=== PATIENT | female | born 1970 | race African-American/Black ===

== ENCOUNTER 2022-06-05 10:26 | Inpatient (IN) | payer OTHER, SELFPAY ==
[2022-06-05] VITALS (14 sets, daily range): BP systolic 144–171; BP diastolic 82–117; PULSE 80–103; RESP 12–32; TEMP 36.4–37.1; O2SAT 94–99; BMI 18.6
--- NOTE | ~2022-06-05 | XR_ITS ---
EXAMINATION: XR chest 1V portable DATE: 06/05/2022 11:04 INDICATION: Shortness of breath. TECHNIQUE: A single frontal view of the chest was obtained. COMPARISON: None. FINDINGS: The patient is rotated to her left. There is a diffuse interstitial normal pattern in the l ungs, consistent with mild pulmonary edema. There is mild scarring at the lung apices. No pleural eff usion or pneumothorax. The heart size is normal. IMPRESSION: 1. Mild pulmonary edema. Reviewed, dictated and finalized at location A. IMPRESSION: 1. Mild pulmonary edema.
--- NOTE | ~2022-06-05 | US_ITS ---
EXAMINATION: US venous doppler LE DATE: 06/06/2022 08:58 INDICATION: Shortness of breath and elevated d-dimer. TECHNIQUE: Grayscale ultrasound images without and with compression and Doppler ultrasound images of the bilateral lower extremity veins were obtained. COMPARISON: None. FINDINGS: The visualized portions of right common femoral vein, profunda (deep) femoral vein, femoral vein, pop liteal vein, posterior tibial veins, peroneal veins, gastrocnemius vein and greater saphenous vein ou tflow are patent. The visualized portions of left common femoral vein, profunda femoral vein, femoral vein, popliteal v ein, posterior tibial veins, peroneal veins, gastrocnemius vein and greater saphenous vein outflow ar e patent. IMPRESSION: 1. No deep venous thrombosis in either lower limb. Reviewed, dictated and finalized at location A.
--- NOTE | ~2022-06-05 | CT_ITS ---
EXAMINATION: CTA chest PE protocol DATE: 06/05/2022 15:40 INDICATION: Pulmonary embolism TECHNIQUE: Computed tomography angiography (CTA) of the chest was performed with 100 mL Omnipaque-350 intravenous contrast timed to evaluate the pulmonary arteries. Coronal maximum intensity projection 3D-reconstructions were created by the technologist. The dose-length product (DLP) was 125.01 mGy-cm. Automated exposure control and iterative reconstruction technique were employed. COMPARISON: X-ray chest, same date. FINDINGS: Lung parenchyma and airways: Emphysematous change. Diffuse groundglass opacities. Bibasilar atelectas is. Pleura: Small volume bilateral pleural effusions. Thoracic inlet, axillae and chest wall: Bilateral axillary lymphadenopathy. Multiple enlarged lymph n odes at the thoracic inlet. Thoracic aorta: Mild ectasia and arch calcification. Mediastinum: Pulmonary arterial dilation. Mediastinal lymphadenopathy. Right hilar lymphadenopathy. Heart and pericardium: Cardiomegaly. Small volume pericardial effusion. Hepatic vein reflux as can be seen with heart failure. Coronary artery calcifications: Absent. Upper abdomen: No significant finding. Bones: No acute osseous finding. Pulmonary arteries: Study quality: Motion degraded but still adequate for diagnosis. No pulmonary emb harpreet detected. IMPRESSION: No CT evidence of acute pulmonary embolus. Pulmonary edema with small bilateral effusions. Pulmonary arterial hypertension. Thoracic inlet, bilateral axillary, mediastinal, and hilar lymphadenopathy. Ca rdiomegaly with evidence of heart failure. Small pericardial effusion. Reviewed, dictated and finalized at location K. IMPRESSION: No CT evidence of acute pulmonary embolus. Pulmonary edema with small bilateral effusions. Pulmonary arterial hypertension. Thoracic inlet, bilateral axillary , mediastinal, and hilar lymphadenopathy. Cardiomegaly with evidence of heart f ailure. Small pericardial effusion.
--- NOTE | ~2022-06-05 | CT_ITS ---
EXAMINATION: CT abdomen pelvis wo con DATE: 06/06/2022 13:10 INDICATION: abdominal pain TECHNIQUE: Computed tomography (CT) of the abdomen and pelvis was performed without intravenous contr ast. Automated exposure control and iterative reconstruction technique were employed. The dose-length product was 164.24 mGy-cm. COMPARISON: CTPA 06/05/2022. FINDINGS: Examination is limited by lack of intravenous contrast, possibly of intra-abdominal fat, and mesenter ic edema. Lower thorax: Cardiomegaly. Moderate volume pericardial fluid. Small bilateral pleural effusions. Liver: Simple right lobe cyst. Biliary/Gallbladder: Contrast excretion in an otherwise normal-appearing gallbladder. No bile duct di lation. Pancreas: No mass or duct dilation. Spleen: Normal. Adrenals:No mass. Kidneys: No mass, stone, or hydronephrosis. Residual contrast excretion. GI tract: No small or large bowel dilation. Appendix not visualized. Mesentery/Peritoneum: Diffuse mesenteric edema. No significant free fluid or gas. Retroperitoneum: No mass. Increased soft tissue density about the aorta, may reflect adenopathy, dete rmination difficult due to lack of fat planes with adjacent structures. Pelvis: Calcified fundal pedunculated fibroid. Contrast excretion in the bladder.. Soft Tissues: Mild diffuse subcutaneous edema. Bilateral inguinal lymphadenopathy. Bones: No acute osseous finding. IMPRESSION: Limited examination. Pericardial effusion, slightly increased since the prior study. Small bilateral pleural effusions. Possible periaortic lymphadenopathy. Mesenteric and subcutaneous edema. Bilateral inguinal lymphadenopathy. Reviewed, dictated and finalized at location K. IMPRESSION: Limited examination. Pericardial effusion, slightly increased since the prior s tudy. Small bilateral pleural effusions. Possible periaortic lymphadenopathy. M esenteric and subcutaneous edema. Bilateral inguinal lymphadenopathy.
--- NOTE | 2022-06-05 10:45 | ED.SOB ---
HPI - SOB/Dyspnea General Chief Complaint: Shortness of Breath/Dyspnea Stated Complaint: sudden onset of sob Time Seen by Provider: 06/05/22 10:44 Source: patient, EMS and RN notes reviewed Mode of arrival: EMS Limitations: no limitations History of Present Illness HPI Narrative: 52 years old -Cypriot female brought to the emergency room by ambulance complaining of difficulty breathing since last night.. Patient had similar symptoms of shortness of breath of unknown diagnosis. Last time was at [facility] 2 months ago for unknown reason. No significant other at the bedside at this time. Patient does not take medicine, history of tobacco use, alcoholism, cocaine use last night. Patient is full code, did not get vaccinated for COVID, possible homeless Related Data Home Medications Medication Instructions Recorded Confirmed No Home Medications 06/05/22 06/05/22 Allergies Allergy/AdvReac Type Severity Reaction Status Date / Time No Known Allergies Allergy Verified 06/05/22 10:45 Review of Systems Review of Systems: All systems reviewed & are unremarkable except as noted in HPI and below PMFSH Past Medical History Medical History Tobacco use Surgical History Surgical History (Updated 06/05/22 @ 18:29 by Diana Lawrence NP) Surgical history unknown Family History Family History Unknown Unknown family medical history Social History Social History (Updated 06/05/22 @ 18:32 by Diana Lawrence NP) Social History: The patient stated that she is homeless. She would not give me much information. Smoking status: Current every day smoker Alcohol intake: unknown Substance use: current Substance use type: crack/cocaine Last use: 06/04/22 Spiritual care concerns: No Exam Narrative: General appearance: Well-developed, well-nourished Skin: Normal color scattered skin disfiguration Head: Normocephalic, nontraumatic Eyes: Clear conjunctiva ENT: Oropharynx normal, ears normal, nose normal a lot of missing teeth Neck: Supple, nontender Chest and respiratory: Airway patent, no respiratory distress, no accessory muscle use Heart: Regular rate/rhythm Abdomen: Soft, nontender, no organomegaly, quiet bowel sounds Vascular: Normal peripheral pulses, normal capillary refill. Musculoskeletal: Normal range of motion, nontender back Neurologic: Alert and oriented ?3, Course Vital Signs Vital signs: Vital Signs Temperature 36.5 C 06/05/22 10:36 Pulse Rate 89 06/05/22 10:36 Respiratory Rate 14 06/05/22 10:36 Blood Pressure 160/105 H 06/05/22 10:36 Pulse Oximetry 99 06/05/22 10:36 Oxygen Delivery Nasal Cannula 06/05/22 10:36 Oxygen Flow Rate 2 06/05/22 10:36 Temperature 36.1 C L 06/07/22 14:00 Pulse Rate 102 H 06/07/22 14:00 Respiratory Rate 22 H 06/07/22 14:00 Blood Pressure 163/96 H 06/07/22 14:00 Pulse Oximetry 99 06/07/22 14:00 Oxygen Delivery Room Air 06/07/22 08:30 Oxygen Flow Rate 2 06/06/22 08:00 MDM - SOB/Dyspnea Differential Diagnosis Differential diagnosis: Likely acute exacerbation of chronic obstructive airways disease, congestive heart failure, community acquired pneumonia and pulmonary embolism Lab Data Result diagrams: 06/07/22 07:33 06/07/22 07:34 Labs: Lab Results 06/05/22 06/05/22 06/05/22 Range/Units 13:13 13:13 13:14 WBC 6.2 (4.5-10.0) K/mm3 RBC 4.55 (4.2-5.4) M/mm3 Hgb 9.8 L (12.0-15.0) g/dL Hct 34.4 L (37.0-47.0) % MCV 75.6 L (80-100) fl MCH 21.5 L (26-34) pg MCHC 28.5 L (32-36) g/dl RDW 21.2 H (11.
--- NOTE | 2022-06-05 10:46 | ECG_ITS ---
Measurements Intervals [place] Rate: 94 P: 80 NE: 118 QRS: 89 QRSD: 75 T: 28 QT: 373 QTc: 468 Interpretive Statements SINUS RHYTHM WITH SHORT NE INTERVAL LEFT ATRIAL ENLARGEMENT NONSPECIFIC ST & T-WAVE ABNORMALITY NO PREVIOUS ECG AVAILABLE FOR COMPARISON Electronically Signed On 06-05-2022 11:46:02 CDT by Garrick Harrell M.D.
--- NOTE | 2022-06-05 10:55 | PC.NURSE ---
Unable to obtain IV access at this time. Called NIK Tapia for ultrasound IV placement.
[2022-06-05 11:38] LABS: Alveolar/Arterial O2 Gradient 62.7 mmHg; Base Excess ABG 5.1 mEq/l (+/-2.0); Fractional Inspired Oxygen 21 %; HCO3 ABG 28.3 mEq/l (22.0-26.0); PCO2 ABG 36.2 mmHg (35.0-45.0); PO2 FiO2 Ratio Arterial Blood 2.08 %; Total Hemoglobin 10.2 g/dL (12.0-18.0)
[2022-06-05 11:41] LABS: PO2 ABG 43.7 mmHg (80.0-100.0); pH ABG 7.511 (7.350-7.450)
[2022-06-05 11:42] LABS: Modified Allen's Test Pass; Oxygen Saturation ABG 84.4 % (95.0-100.0); Oxyhemoglobin 76.8 % THb (90.0-100.0); Site Drawn LEFT RADIAL
[2022-06-05 13:20] LABS: Basophils Percent Auto 0.3 % (0.2-1.2); Eosinophils Absolute Auto 0.1 K/mm3 (0-0.3); Eosinophils Percent Auto 2.3 % (0-4.4); Hematocrit 34.4 % (37.0-47.0); Hemoglobin 9.8 g/dL (12.0-15.0); Immature Granulocyte Absolute 0.02 K/mm3 (0.00-0.031); Immature Granulocyte Percent A 0.3 % (0-0.5); Lymphocytes Absolute Auto 1.44 K/mm3 (0.9-3.2); Lymphocytes Percent Auto 23.3 % (18.3-44.2); Mean Corpuscular HGB Conc 28.5 g/dl (32-36); Mean Corpuscular Hemoglobin 21.5 pg (26-34); Mean Corpuscular Volume 75.6 fl (80-100); Mean Platelet Volume 9.9 fl (7.4-10.4); Monocytes Absolute Auto 0.7 K/mm3 (0.1-0.6); Monocytes Percent Auto 11.1 % (2.6-8.5); Neutrophils Absolute Auto 3.9 K/mm3 (1.3-6.7); Neutrophils Percent Auto 62.7 % (45.5-73.1); Platelet Count Result 417 k/mm3 (150-375); Red Blood Count 4.55 M/mm3 (4.2-5.4); Red Cell Distribution Width 21.2 % (11.5-14.5); White Blood Count 6.2 K/mm3 (4.5-10.0)
[2022-06-05 13:29] LABS: Lactic Acid Reflex 0.9 mmol/L (0.7-2.0)
[2022-06-05 13:35] LABS: Hypochromasia 2+ (NORMAL); Platelet Estimate Adequate (Adequate); Target Cells 1+ (NORMAL)
[2022-06-05 13:36] LABS: Anisocytosis 1+ (NORMAL)
[2022-06-05 13:40] LABS: Partial Thromboplastin Time 30.2 SECONDS (22.3-36.8)
--- NOTE | 2022-06-05 13:43 | PC.NURSE ---
Phlebotomy called due to patient's condition and rejection of Green Top Tube by lab. Patient has been stuck multiple times by multiple prior to this call.
[2022-06-05 14:05] LABS: SARS-CoV-2 RNA PCR Negative
[2022-06-05 14:07] LABS: D Dimer 1.24 ug/mL (<0.48)
[2022-06-05 14:34] LABS: Alanine Aminotransferase 24 U/L (6-35); Albumin Level 2.7 g/dL (3.5-5.1); Alkaline Phosphatase 137 U/L (38-126); Anion Gap 5 mmol/L (8-16); Aspartate Amino Transferase 35 U/L (14-36); Bilirubin,Total 0.3 mg/dL (0.2-1.3); Blood Urea Nitrogen 10 mg/dL (7-17); Calcium 7.9 mg/dL (8.4-10.2); Carbon Dioxide 30 mmol/L (22-30); Chloride 102 mmol/L (98-107); Estimated Glomerular Filt Rate > 60; Glucose 82 mg/dL (65-110); Potassium 3.4 mmol/L (3.4-5.0); Sodium 137 mmol/L (137-145)
[2022-06-05 14:45] LABS: NT Pro B Type Natriuretic Pept 4090 pg/mL (5-100)
[2022-06-05 14:47] LABS: Troponin I 0.012 ng/mL (0.000-0.034)
--- NOTE | 2022-06-05 15:48 | PC.NURSE ---
Dinner tray ordered at 6040
[2022-06-05] MEDS: FUROSEMIDE INJ 100 MG/10 ML VIAL 60 MG IV PUSH (15:51)
[2022-06-05] MEDS: ENOXAPARIN 60 MG/0.6 ML SYRINGE 50 MG SUB-Q (15:52)
[2022-06-05] MEDS: NITROGLYCERIN OINTMENT 1 INCH DOSE TRANSDERM ×3 (15:52→23:45)
--- NOTE | 2022-06-05 16:23 | PC.NURSE ---
RN walked into room with pt actively vomiting in bed and when RN walked to bedside pt had fingers in their mouth inducing vomiting. When asked what pt was doing the pt stated need to get this stuff out of my stomach
--- NOTE | 2022-06-05 16:45 | PC.NURSE ---
This patient, Salomon Young, was admitted to IMU Room 207-01. Patient/family oriented to hospital policies and general routines including ID bracelet, bed and alarms, visiting hours, pain management, procedures, bathroom and other care routines, personal items, smoking policy, room service/diet, and visiting hours. Information on how to activate the Rapid Response Team has been discussed. Patient/Family are encouraged to report perceived risks to care and to ask questions if they do not understand what they are told or what they should do.
[2022-06-05] MEDS: ONDANSETRON INJ 4 MG/2 ML VIAL IV PUSH (17:23)
--- NOTE | 2022-06-05 18:13 | PM.IMHP ---
H&P: HPI History of Present Illness Date/Time: 06/05/22 18:13 Chief Complaint: sob Narrative: This is a 52-year-old female patient who is homeless. She was brought in by ambulance for complaints difficulty breathing since last night. The patient would not talk to me or inform me of any previous diagnosis she has had a past. She admits to cocaine abuse and admits she does not take any medicine. Her last cocaine use was last night. She stated that she is homeless. The patient is in the room rocking back and forth stating that her lower back hurts. H&H 9.8 and 34.4. MCH is 21.5. Platelets 417. ABGs pH 7.511 PO2 was 43.7 O2 saturation 84.4. Patient was placed on 2 L per nasal cannula. BNP is listed as 4090. She was negative for COVID. Lasix was given as well as nitroglycerin in the emergency room. Patient is being admitted to inpatient services on 06/05/2022. Review of Systems Review of Systems: Nausea All systems reviewed & are unremarkable except as noted in HPI and below Constitutional: Constitutional: Reports as per HPI and Reports no additional constitutional complaints Eyes: Eyes: Reports as per HPI and Reports no additional eye complaints ENT: Reports system reviewed and no additional complaints, except as documented and Reports Normal hearing present Cardiovascular: Cardiovascular: Reports no additional cardiovascular complaints Respiratory: Respiratory: Reports no additional respiratory complaints and Reports no additional respiratory complaints Gastrointestinal: Gastrointestinal: Reports as per HPI and Reports no additional gastrointestinal complaints Musculoskeletal: Musculoskeletal: Reports no additional musculoskeletal complaints Integumentary/Breasts: Skin/Breast: Reports system reviewed and no additional complaints, except as docu and Reports as per HPI Neurologic: Reports system reviewed and no additional complaints, except as documented, Reports as per HPI and Reports Normal hearing present Psychiatric: Psychiatric: Reports no additional psychiatric complaints and Reports as per HPI Endocrine: Endocrine: Reports no additional endocrine complaints Hematologic/Lymphatic: Hematologic/Lymphatic: Reports no additional hematologic/lymphatic complaints Allergic/Immunologic: Allergic/Immunologic: Reports no additional allergic/immunologic complaints [facility] Past Medical History Medical History Tobacco use Surgical History Surgical History (Updated 06/05/22 @ 18:29 by Diana Lawrence NP) Surgical history unknown Family History Family History (Updated 06/05/22 @ 18:30 by Diana Lawrence NP) Unknown Unknown family medical history Social History Social History (Updated 06/05/22 @ 18:32 by Diana Lawrence NP) Social History: The patient stated that she is homeless. She would not give me much information. Smoking status: Current every day smoker Alcohol intake: unknown Substance use: current Substance use type: crack/cocaine Last use: 06/04/22 Spiritual care concerns: No Meds Home Medications and Allergies Home Medications Medication Instructions Recorded Confirmed Type No Home Medications 06/05/22 06/05/22 History Allergies Allergy/AdvReac Type Severity Reaction Status Date / Time No Known Allergies Allergy Verified 06/05/22 10:45 Vital Signs Vital Signs - 24 hr 06/05/22 10:36 06/05/22 10:41 06/05/22 11:16 Temperature 36.5 C Pulse Rate 89 90 Respiratory Rate 14 Blood Pressure 160/105 H Pulse Oximetry 99 99 Oxygen Delivery Nasal Cannula Nasal Cannula Oxygen Flow Rate 2 2 06/05/22 11:56 06/05/22 11:56 06/05/22 13:18 Temperature Pulse Rate 95 84 Respiratory Rate 14 17 Blood Pressure 149/82 H 160/102 H Pulse Oximetry 95 95 97 Oxygen Delivery Nasal Cannula Oxygen Flow Rate 2 06/05/22 13:39 06/05/22 14:56 06/05/22 15:59 Temperature Pulse Rate 85 91 98 Respiratory Rate 20 19 32 H Blood Pressure 144/100
[2022-06-05] MEDS: diazePAM INJ (*CRX) 10 MG/2 ML SYRINGE 5 MG IV PUSH (20:07)
[2022-06-05 20:12] LABS: Troponin I 0.015 ng/mL (0.000-0.034)
[2022-06-05 22:08] LABS: Troponin I 0.015 ng/mL (0.000-0.034)
[2022-06-05] MEDS: KETOROLAC 15 MG/ML VIAL (*BKC) IV PUSH (23:41)
[2022-06-06] VITALS (16 sets, daily range): BP systolic 123–184; BP diastolic 72–116; PULSE 82–104; RESP 16–20; TEMP 36.3–37.1; O2SAT 95–100
--- NOTE | 2022-06-06 | ECHO_ITS ---
Patient Info Name: Salomon Young Age: 52 years : 1970 Gender: Female Ht: 59 in Wt: 92 lbs BSA: 1.31 m2 HR: 94 bpm BP: 159 / 103 mmHg Heart Rhythm: Sinus Rhythm Technical Quality: Fair Exam Date: 06/06/2022 9:38 AM Exam Location: [facility] Patient Status: Inpatient Admit Date: 06/05/2022 Staff Ordering Physician: Diana Lawrence NP Leach Cell Operator: Mary Ricci RDCS Attending Provider: Pita Merino PA-C Referring Physician: Howard GOEL; Exam Type: CA echo doppler color flow Study Info Indications - Cardiomegaly with cocaine use Complete two-dimensional, color flow and Doppler transthoracic echocardiogram is performed. Summary 1. Complete two-dimensional, color flow and Doppler transthoracic echocardiogram is performed. 2. Left ventricular chamber dimension is normal. 3. Left ventricular systolic function is lower limits of normal, estimated at 50-55%. 4. There is no increased left ventricular wall thickness. 5. The left ventricular diastolic function is grade I diastolic dysfunction. 6. The aortic valve is not well visualized, however, leaflets appear thin and pliable with normal excursion.. 7. Low peak aortic valve velocity and mean gradient are not consistent with hemodynamically significant aortic stenosis. Suspect calculated aortic valve area 1.1 cm2 is inaccurate. 8. There is no aortic valve regurgitation. 9. There is trace mitral valve regurgitation. 10. There is trace tricuspid valve regurgitation. 11. No pulmonary hypertension, estimated pulmonary arterial systolic pressure is 17 mmHg. 12. Normal inferior vena cava with >50% collapse upon inspiration consistent with normal right atrial pressure, 5 mmHg. 13. There is small pericardial effusion without tamponade physiology. Left Ventricle Left ventricular chamber dimension is normal. Left ventricular systolic function is lower limits of normal, estimated at 50-55%. There is no increased left ventricular wall thickness. The left ventricular diastolic function is grade I diastolic dysfunction. Right Ventricle Right ventricular chamber dimension is normal. Right ventricular systolic function is normal. Left Atria Left atrial chamber dimension is normal. Right Atria Right atrial chamber dimension is normal. Aortic Valve The aortic valve is not well visualized, however, leaflets appear thin and pliable with normal excursion.. Low peak aortic valve velocity and mean gradient are not consistent with hemodynamically significant aortic stenosis. Suspect calculated aortic valve area 1.1 cm2 is inaccurate. There is no aortic valve regurgitation. Pulmonic Valve The pulmonic valve is not well visualized. There is trace pulmonic regurgitation. Mitral Valve The mitral valve has thickened leaflets. There is trace mitral valve regurgitation. Tricuspid Valve The tricuspid valve leaflets are normal. There is trace tricuspid valve regurgitation. No pulmonary hypertension, estimated pulmonary arterial systolic pressure is 17 mmHg. Pericardium/Pleural The pericardium appears normal. There is small pericardial effusion without tamponade physiology. Inferior Vena Cava Normal inferior vena cava with >50% collapse upon inspiration consistent with normal right atrial pressure, 5 mmHg. Aorta The aortic root size at the sinus of Valsalva is normal. Left Ventricular Outflow Tract Name
[2022-06-06] MEDS: NITROGLYCERIN OINTMENT 1 INCH DOSE TRANSDERM (05:56)
[2022-06-06] MEDS: FUROSEMIDE INJ 40 MG/4 ML VIAL IV PUSH ×2 (05:56→17:48)
--- NOTE | 2022-06-06 06:00 | ECG_ITS ---
Measurements Intervals [place] Rate: 94 P: 85 IN: 107 QRS: 92 QRSD: 85 T: 74 QT: 407 QTc: 510 Interpretive Statements SINUS RHYTHM WITH SHORT IN INTERVAL POSSIBLE RIGHT ATRIAL ENLARGEMENT POSSIBLE LEFT ATRIAL ENLARGEMENT T-WAVE ABNORMALITY, CONSIDER SEPTAL ISCHEMIA BORDERLINE ECG COMPARED TO ECG 06/05/2022 10:29:50 NO SIGNIFICANT CHANGES Electronically Signed On 06-06-2022 12:48:06 CDT by Reddy Saunders M.D.
[2022-06-06] MEDS: ONDANSETRON INJ 4 MG/2 ML VIAL IV PUSH (06:01)
--- NOTE | 2022-06-06 07:45 | PC.NURSE ---
Spoke with NEYDA Way regarding parameters on PRN hydralazine. BP has also been retaken and it's now 159/103. New order for parameters of SBP> 170 or DBP> 110, and to not give hydralazine now, but to recheck BP at 1000.
[2022-06-06] MEDS: SILVERGEL (ELTA) 45 ML 1 APPLIC TOPICAL (09:27)
[2022-06-06] MEDS: ENOXAPARIN 40 MG/0.4 ML SYRINGE SUB-Q (09:27)
--- NOTE | 2022-06-06 11:38 | PC.NURSE ---
Notified NEYDA Way of BP at 1030 was 169/84. BP now is 175/103. Parameters for IVP hydralazine are for SBP >170. Pt currently doesn't have any IV access, but is taking oral intake. New order for Hydralazine 25mg PO once, and d/c Nitro patch. Recheck BP 2 hours after medication administration
[2022-06-06] MEDS: hydrALAZINE HCL 25 MG TABLET PO ×2 (12:23→17:48)
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
[2022-06-06] MEDS: polyethylene glycoL 3350 17 GM POWD.PACK PO (15:45)
[2022-06-06] MEDS: KETOROLAC 15 MG/ML VIAL (*BKC) IV PUSH ×2 (17:48→22:26)
[2022-06-06] MEDS: DOCUSATE SODIUM 100 MG CAPSULE PO (20:39)
[2022-06-06 20:48] LABS: Basophils Percent Auto 0.6 % (0.2-1.2); Eosinophils Absolute Auto 0.1 K/mm3 (0-0.3); Eosinophils Percent Auto 3.4 % (0-4.4); Hematocrit 38.6 % (37.0-47.0); Hemoglobin 10.9 g/dL (12.0-15.0); Immature Granulocyte Absolute 0.01 K/mm3 (0.00-0.031); Immature Granulocyte Percent A 0.3 % (0-0.5); Immature Reticulocyte Fraction 15.5 % (3.0-15.9); Lymphocytes Absolute Auto 1.14 K/mm3 (0.9-3.2); Lymphocytes Percent Auto 32.1 % (18.3-44.2); Mean Corpuscular HGB Conc 28.2 g/dl (32-36); Mean Corpuscular Hemoglobin 21.5 pg (26-34); Mean Corpuscular Volume 76.1 fl (80-100); Mean Platelet Volume 10.6 fl (7.4-10.4); Monocytes Absolute Auto 0.4 K/mm3 (0.1-0.6); Monocytes Percent Auto 11.3 % (2.6-8.5); Neutrophils Absolute Auto 1.9 K/mm3 (1.3-6.7); Neutrophils Percent Auto 52.3 % (45.5-73.1); Platelet Count Result 406 k/mm3 (150-375); Red Blood Count 5.07 M/mm3 (4.2-5.4); Red Cell Distribution Width 21.4 % (11.5-14.5); Reticulocyte Hemoglobin Conten 21.4 pg (28.2-35.7); Reticulocyte Percent 1.23 % (0.7-4.3); Reticulocytes Absolute 0.06 B/L (32.2-175.7); White Blood Count 3.6 K/mm3 (4.5-10.0)
[2022-06-06 21:13] LABS: Atypical Lymphocytes Present; Hypochromasia 1+ (NORMAL); Ovalocytes 1+ (NORMAL); Platelet Estimate Increased (Adequate); Target Cells 1+ (NORMAL)
[2022-06-06 21:39] LABS: Alanine Aminotransferase 20 U/L (6-35); Albumin Level 2.9 g/dL (3.5-5.1); Alkaline Phosphatase 126 U/L (38-126); Anion Gap 5 mmol/L (8-16); Aspartate Amino Transferase 22 U/L (14-36); Bilirubin,Total 0.1 mg/dL (0.2-1.3); Blood Urea Nitrogen 15 mg/dL (7-17); Calcium 8.4 mg/dL (8.4-10.2); Carbon Dioxide 38 mmol/L (22-30); Chloride 92 mmol/L (98-107); Estimated Glomerular Filt Rate > 60; Glucose 106 mg/dL (65-110); Potassium 2.9 mmol/L (3.4-5.0); Sodium 135 mmol/L (137-145)
[2022-06-06] MEDS: diazePAM (*CRX) 2.5 MG TABLET PO (22:25)
[2022-06-06 23:35] LABS: HIV 1/2 Ab P24 Ag Result Negative (Negative)
[2022-06-06 23:37] LABS: Iron 40 ug/dL (37-170); Percent Iron Saturation 15 % (20-50)
[2022-06-06 23:55] LABS: Hepatitis B Surface Antigen Negative (Negative)
[2022-06-07 00:01] LABS: HAV RESULT Negative (Negative); Hepatitis B Core IgM Result Negative (Negative)
[2022-06-07 00:13] LABS: Hepatitis C Virus Antibody Negative (Negative)
[2022-06-07] MEDS: FUROSEMIDE INJ 40 MG/4 ML VIAL IV PUSH ×2 (05:18→18:06)
[2022-06-07] MEDS: ONDANSETRON INJ 4 MG/2 ML VIAL IV PUSH ×2 (05:18→15:34)
[2022-06-07 06:03] VITALS: BP 171/99; PULSE 95; RESP 18; TEMP 36.5; O2SAT 99
--- NOTE | 2022-06-07 06:08 | PC.NURSE ---
This patient, Salomon Young, was transferred to [facility] on 06/06/22 at 2130. Personal belongings sent with patient. Report given to floor RN. Appropriate documentation sent with patient.
[2022-06-07 08:01] LABS: Hematocrit 36.3 % (37.0-47.0); Hemoglobin 10.1 g/dL (12.0-15.0); Mean Corpuscular HGB Conc 27.8 g/dl (32-36); Mean Corpuscular Hemoglobin 21.4 pg (26-34); Mean Corpuscular Volume 76.9 fl (80-100); Mean Platelet Volume 10.2 fl (7.4-10.4); Platelet Count Result 408 k/mm3 (150-375); Red Blood Count 4.72 M/mm3 (4.2-5.4); Red Cell Distribution Width 21.2 % (11.5-14.5); White Blood Count 3.7 K/mm3 (4.5-10.0)
[2022-06-07 08:21] LABS: Anion Gap 6 mmol/L (8-16); Blood Urea Nitrogen 16 mg/dL (7-17); Calcium 8.2 mg/dL (8.4-10.2); Carbon Dioxide 39 mmol/L (22-30); Chloride 93 mmol/L (98-107); Estimated Glomerular Filt Rate > 60; Glucose 95 mg/dL (65-110); Potassium 3.3 mmol/L (3.4-5.0); Sodium 138 mmol/L (137-145)
[2022-06-07] MEDS: PANTOPRAZOLE 40 MG TABLET PO (08:33)
[2022-06-07] MEDS: polyethylene glycoL 3350 17 GM POWD.PACK PO (08:33)
[2022-06-07] MEDS: ENOXAPARIN 40 MG/0.4 ML SYRINGE SUB-Q (08:33)
[2022-06-07] MEDS: DOCUSATE SODIUM 100 MG CAPSULE PO (08:33)
[2022-06-07] MEDS: POTASSIUM CHLORIDE 20 MEQ TABLET 40 MEQ PO (09:37)
[2022-06-07] MEDS: hydrALAZINE HCL 25 MG TABLET PO ×2 (09:38→15:52)
[2022-06-07] MEDS: LIDOCAINE 5% PATCH 1 PATCH TRANSDERM (09:38)
[2022-06-07 09:43] LABS: Lipase 286 U/L (23-300)
[2022-06-07 09:46] LABS: Magnesium 1.6 mg/dL (1.6-2.3)
[2022-06-07] MEDS: SILVERGEL (ELTA) 45 ML 1 APPLIC TOPICAL (13:28)
[2022-06-07] MEDS: KETOROLAC 15 MG/ML VIAL (*BKC) IV PUSH (13:28)
[2022-06-07 13:58] LABS: Rapid Plasma Reagin Non-Reactive (NonReactive)
[2022-06-07 14:00] VITALS: BP 163/96; PULSE 102; RESP 22; TEMP 36.1; O2SAT 99
--- NOTE | 2022-06-07 14:12 | P.PNIM_ITS ---
Progress Note: A&P Assessment and Plan (1) Congestive heart failure: Code(s): I50.9 - Heart failure, unspecified Status: Acute Assessment and Plan: Presented with SOB * BNP 4000 on presentation * CXR showed mild pulmonary edema * CT a/p also with evidence of pericardial effusion, bilateral pleural effusion * Continue with IV Lasix 40 mg IV BID. Plan to transition to PO Lasix tomorrow. * Has been weaned to room air * Echo showed EF 50-55%, grade I diastolic dysfunction * Monitor strict intake and output. Heart healthy diet. (2) Abdominal pain: Code(s): R10.9 - Unspecified abdominal pain Status: Acute Assessment and Plan: Patient complains of stabbing abdominal pain * CT a/p with evidende of mesenteric edema which could contribute. Continue with diuresis * May have psychogenic component of abdominal pain based on physical exam findings. * Gastritis considered, seems less likely. Begin protonix. * Continue bowel regimen * Analgesics as needed * Supportive care (3) Hypertension: Code(s): I10 - Essential (primary) hypertension Status: Acute Assessment and Plan: Blood pressures have been elevated above target in the 150s-160s systolic. * Suspect worsened due to pain and anxiety * Continue PO hydralazine 25 mg TID * Reportedly was on carvedilol at home but stopped taking in April. Avoid beta blockers due to cocaine use. * Monitor BP trends closely (4) Venous stasis ulcers: Code(s): I83.009 - Varicose veins of unspecified lower extremity with ulcer of unspecified site; L97.909 - Non-pressure chronic ulcer of unspecified part of unspecified lower leg with unspecified severity Status: Acute Assessment and Plan: Bilateral lower extremities * Appreciate wound consultation * Continue silver gel and mepilex border * Venous doppler negative (5) Cocaine use: Code(s): F14.90 - Cocaine use, unspecified, uncomplicated Status: Acute Assessment and Plan: Daily cocaine use * Last use was 06/05/22 * Drug cessation recommended. Resources to be provided by Care coordination (6) Tobacco use: Code(s): Z72.0 - Tobacco use Status: Acute Assessment and Plan: Patient is a daily smoker * Patient has been educated regarding smoking cessation (7) Non-compliance: Code(s): Z91.19 - Patient's noncompliance with other medical treatment and regimen Status: Acute Assessment and Plan: Patient stopped taking medications in April 2022 * Care coordination to provide resources (8) Hypokalemia: Code(s): E87.6 - Hypokalemia Status: Acute Assessment and Plan: Likely due to IV diuresis * Potassium 3.3 * KCl 40 mEq * Monitor BMP Subjective Date/time seen: 06/07/22 14:12 Interval history: Date of service: 06/07/2022 Salomon Young is a homeless 52 year old female with a history of cocaine abuse, tobacco abuse, and skin grafts due to unspecified allergic reaction who is seen in follow up for CHF. She was asleep, resting comfortably when I entered the room. When I walked in and said hello, she sprang up from her lying position complaining of severe abdominal pain. She states it has been persistent for days. She has not had a bowel movement. She denies SOB, cough, chest pain. She did state she threw up her whole breakfast but her nurse states she did not vomit and was able to tolerate her breakfast. Review of Systems
--- NOTE | 2022-06-07 14:12 | PM.IMPN ---
Progress Note: A&P Assessment and Plan (1) Congestive heart failure: Code(s): I50.9 - Heart failure, unspecified Status: Acute Assessment and Plan: Presented with SOB BNP 4000 on presentation CXR showed mild pulmonary edema CT a/p also with evidence of pericardial effusion, bilateral pleural effusion Continue with IV Lasix 40 mg IV BID. Plan to transition to PO Lasix tomorrow. Has been weaned to room air Echo showed EF 50-55%, grade I diastolic dysfunction Monitor strict intake and output. Heart healthy diet. (2) Abdominal pain: Code(s): R10.9 - Unspecified abdominal pain Status: Acute Assessment and Plan: Patient complains of stabbing abdominal pain CT a/p with evidende of mesenteric edema which could contribute. Continue with diuresis May have psychogenic component of abdominal pain based on physical exam findings. Gastritis considered, seems less likely. Begin protonix. Continue bowel regimen Analgesics as needed Supportive care (3) Hypertension: Code(s): I10 - Essential (primary) hypertension Status: Acute Assessment and Plan: Blood pressures have been elevated above target in the 150s-160s systolic. Suspect worsened due to pain and anxiety Continue PO hydralazine 25 mg TID Reportedly was on carvedilol at home but stopped taking in April. Avoid beta blockers due to cocaine use. Monitor BP trends closely (4) Venous stasis ulcers: Code(s): I83.009 - Varicose veins of unspecified lower extremity with ulcer of unspecified site; L97.909 - Non-pressure chronic ulcer of unspecified part of unspecified lower leg with unspecified severity Status: Acute Assessment and Plan: Bilateral lower extremities Appreciate wound consultation Continue silver gel and mepilex border Venous doppler negative (5) Cocaine use: Code(s): F14.90 - Cocaine use, unspecified, uncomplicated Status: Acute Assessment and Plan: Daily cocaine use Last use was 06/05/22 Drug cessation recommended. Resources to be provided by Care coordination (6) Tobacco use: Code(s): Z72.0 - Tobacco use Status: Acute Assessment and Plan: Patient is a daily smoker Patient has been educated regarding smoking cessation (7) Non-compliance: Code(s): Z91.19 - Patient's noncompliance with other medical treatment and regimen Status: Acute Assessment and Plan: Patient stopped taking medications in April 2022 Care coordination to provide resources (8) Hypokalemia: Code(s): E87.6 - Hypokalemia Status: Acute Assessment and Plan: Likely due to IV diuresis Potassium 3.3 KCl 40 mEq Monitor BMP Subjective Date/time seen: 06/07/22 14:12 Interval history: Date of service: 06/07/2022 Salomon Young is a homeless 52 year old female with a history of cocaine abuse, tobacco abuse, and skin grafts due to unspecified allergic reaction who is seen in follow up for CHF. She was asleep, resting comfortably when I entered the room. When I walked in and said hello, she sprang up from her lying position complaining of severe abdominal pain. She states it has been persistent for days. She has not had a bowel movement. She denies SOB, cough, chest pain. She did state she threw up her whole breakfast but her nurse states she did not vomit and was able to tolerate her breakfast. Review of Systems Review of Systems: All systems reviewed & are unremarkable except as noted in HPI and below Exam Narrative: General: malnourished, slightly disheveled appearing 52-year-old female, comfortable, NARD Neuro: awake, alert and oriented x4, speech clear, no focal neuro deficits noted HEENMT: normocephalic, atraumatic, EOMI, sclerae anicteric, moist oral mucosa Respiratory: clear to auscultation bilaterally, nonlabored breathing Cardio: regular rate, regular rhythm with S1-S2 Abdomen:
[2022-06-07] MEDS: MAGNESIUM SULF 2 GM/WATER 50ML 2 GM/50 ML BAG IVPB (15:34)
[2022-06-07] MEDS: traMADol HCL (*CRX) 25 MG TABLET PO (15:51)
--- NOTE | 2022-06-07 19:28 | PC.NURSE ---
Patient noted that they received a phone call from daughter and had an emergency so needed to leave. Patient educated that would be leaving against medical advice if she left. Patient voiced understanding. Aircraft Maintenance Director made aware that patient wanted to leave AMA. Patient alert and oriented and educated on the risks of leaving AMA. Patient continues to want to leave AMA. IV discontinued. Patient dressed and wheeled downstairs and stated would be taking public transportation to get to family.
[2022-06-11 07:27] LABS: Albumin 2.4 g/dL (3.8-4.8); Alpha 1 Globulin 0.4 g/dL (0.2-0.3); Alpha 2 Globulin 1.1 g/dL (0.5-0.9); Beta 1 Globulin 0.4 g/dL (0.4-0.6); Gamma Globulin 2.2 g/dL (0.8-1.7)
[2022-06-11 14:26] LABS: Haptoglobin 181 mg/dL (43-212)
== END 2022-06-07 19:28 | disposition left against medical advice (07) | DRG 292 ==
LOC: ANHED 15:22 → ANHIMU 15:53 → ANH3MEDSUR 06-07 19:32 → ANHIMU 06-08 13:19
PROVIDERS: Nurse Practitioner; Physician Assistant; Admitting Provider Chiropractor; Emergency Provider Emergency Medicine; Visit Provider Internal Medicine
DX: I11.0 Hypertensive heart disease with heart failure (principal); L97.819 Non-pressure chronic ulcer of other part of right lower leg with unspecified severity; L97.829 Non-pressure chronic ulcer of other part of left lower leg with unspecified severity; I50.9 Heart failure, unspecified; E87.6 Hypokalemia; Z20.822 Contact with and (suspected) exposure to COVID-19; F17.290 Nicotine dependence, other tobacco product, uncomplicated; F14.90 Cocaine use, unspecified, uncomplicated; I83.018 Varicose veins of right lower extremity with ulcer other part of lower leg; I83.028 Varicose veins of left lower extremity with ulcer other part of lower leg; R10.9 Unspecified abdominal pain; M54.50 Low back pain, unspecified; Z59.00 Homelessness unspecified; Z28.310 Unvaccinated for COVID-19; Z91.19 Patient's noncompliance with other medical treatment and regimen
CPT/HCPCS: 36415; 36600; 71045; 71275; 74176; 80048; 80053; 80074; 82607; 82728; 82746; 82805; 83010; 83540; 83550; 83605; 83690; 83735; 83880; 84155; 84165; 84484; 85025; 85027; 85046; 85380; 85610; 85730; 86592; 86703; 86880; 87040; 93005; 93306; 93970; 96374; 99285; A9270; C9803; G0432; J1650; J1885; J1940; J2405; J3360; J3475; Q9967; U0003; U0005

== ENCOUNTER 2022-08-09 11:00 | Observation (INO) | payer OTHER, SELFPAY ==
[2022-08-09] VITALS (23 sets, daily range): BP systolic 136–182; BP diastolic 64–120; PULSE 89–126; RESP 10–25; TEMP 36.6–36.7; O2SAT 88–100
--- NOTE | ~2022-08-09 | XR_ITS ---
EXAMINATION: XR chest 1V portable DATE: 08/09/2022 11:49 INDICATION: Shortness of breath and weakness TECHNIQUE: frontal view of the chest was obtained. COMPARISON: Chest radiograph and CT dated 06/05/2022 FINDINGS: Diffuse increased interstitial pattern consistent with mild pulmonary edema. A superimposed over emph ysema better appreciated on prior CT with increased lucency and architectural distortion at the upper lung zones. Small bilateral pleural effusions. No pneumothorax. Cardiomegaly. Old healed lateral lef t seventh rib fracture. IMPRESSION: 1. Likely congestive heart failure with cardiomegaly, mild pulmonary edema and small bilateral pleura l effusions. 2. Emphysema. Reviewed, dictated and finalized at location A. IMPRESSION: 1. Likely congestive heart failure with cardiomegaly, mild pulmonary edema and small bilateral pleural effusions. 2. Emphysema.
--- NOTE | 2022-08-09 11:02 | ECG_ITS ---
Measurements Intervals [place] Rate: 98 P: 81 [place]: 111 QRS: 96 QRSD: 77 T: 75 QT: 375 QTc: 479 Interpretive Statements SINUS RHYTHM WITH SHORT [place] INTERVAL POSSIBLE LEFT ATRIAL ENLARGEMENT [-0.1mV P WAVE IN V1/V2] NONSPECIFIC ST & T-WAVE ABNORMALITY COMPARED TO ECG 06/06/2022 09:14:34 NO SIGNIFICANT CHANGES Electronically Signed On 08-09-2022 17:27:19 CDT by Kristi Lorenz M.D.
--- NOTE | 2022-08-09 12:43 | ED.GENADULT ---
HPI - General Adult General Chief complaint: Shortness of Breath/Dyspnea Stated complaint: dyspnea Time Seen by Provider: 08/09/22 11:55 History of Present Illness HPI narrative: 52-year-old female presents for evaluation of chest pain and shortness of breath which is chronic but patient was tired of feeling it today. She also admits a sensation of something crawling on her legs since 2017. She is unsure if there is no exertional component to the symptoms. Patient admits to smoking crack cocaine once to twice a day. She last used crack cocaine yesterday afternoon. Of note there is a white powder all over patient's lips which she states is cornstarch. Patient likes to eat cornstarch daily because she likes the taste. Related Data Home Medications Medication Instructions Recorded Confirmed No Home Medications 06/05/22 06/05/22 Allergies Allergy/AdvReac Type Severity Reaction Status Date / Time Penicillins Allergy Hives Verified 08/09/22 11:05 Review of Systems Review of Systems: CONSTITUTIONAL: Denies fever, chills, or sweats. EYES: Denies visual changes, redness, or discharge. ENT: Denies rhinorrhea, congestion, sore throat, or otalgia. CARDIOVASCULAR: Denies chest pain, palpitations, or edema. RESPIRATORY: Denies cough or dyspnea. GASTROINTESTINAL: Denies abdominal pain, nausea, vomiting, or diarrhea. GENITOURINARY: Denies dysuria or hematuria. SKIN: Denies rash or itching. MUSCULOSKELETAL: Denies back pain, joint pain, or myalgia. NEUROLOGIC: Denies headache, numbness, or weakness. PSYCHIATRIC: Denies anxiety or depression. [facility] Past Medical History Medical History Tobacco use Surgical History Surgical History (Updated 06/05/22 @ 18:29 by Diana Lawrence NP) Surgical history unknown Family History Family History Unknown Unknown family medical history Social History Social History (Updated 06/05/22 @ 18:32 by Diana Lawrence NP) Social History: The patient stated that she is homeless. She would not give me much information. Smoking status: Current every day smoker Alcohol intake: unknown Substance use: current Substance use type: crack/cocaine Last use: 06/04/22 Spiritual care concerns: No Exam Narrative: GENERAL: Well-appearing, well-nourished, and in no acute distress. HEAD: Normocephalic, atraumatic. EYES: PERRLA and EOMI. ENT: Nares clear, no rhinorrhea or epistaxis. Mucous membranes moist. NECK: Supple. CHEST: Clear to auscultation. No respiratory distress. HEART: Regular rate and rhythm. No murmur heard. Normal peripheral pulses. ABDOMEN: Soft, nontender, nondistended, normal active bowel sounds. EXTREMITIES: Normal range of motion. No edema. SKIN: Warm, dry, no rash. NEURO: No focal deficits. Alert and oriented x3. PSYCH: Normal mood and affect. Course Vital Signs Vital signs: Vital Signs Temperature 97.8 F 08/09/22 10:58 Pulse Rate 103 H 08/09/22 10:58 Respiratory Rate 20 08/09/22 10:58 Blood Pressure 155/74 H 08/09/22 10:58 Temperature 97.8 F 08/09/22 10:58 Pulse Rate 107 H 08/09/22 13:15 Respiratory Rate 24 H 08/09/22 13:15 Blood Pressure 156/112 H 08/09/22 11:46 Pulse Oximetry 100 08/09/22 13:16 Oxygen Delivery Nasal Cannula 08/09/22 13:16 Oxygen Flow Rate 3 08/09/22 13:16 Medical Decision Making MDM Narrative Medical decision making narrative: Cardiac work-up initiated upon arrival. hf, hypokalemia, transaminitis 1. Likely congestive heart failure with cardiomegaly, mild pulmonary edema and small bilateral pleural effusions. 2. Emphysema. Work-up indicative of CHF, pulmonary edema, shortness of breath, hypoxia, hypokalemia and likely venous stasis ulcers. She has had a previous venous Doppler and echocardiogram showing diastolic dysfunction approximately 2 months prior to arrival. It seems that patient may have signed out AGAINST MEDICAL ADVICE du
[2022-08-09 12:54] LABS: Hematocrit 36.8 % (37.0-47.0); Mean Corpuscular HGB Conc 29.9 g/dl (32-36); Mean Corpuscular Hemoglobin 21.9 pg (26-34); Mean Corpuscular Volume 73.2 fl (80-100); Mean Platelet Volume 9.4 fl (7.4-10.4); Platelet Count Result 415 k/mm3 (150-375); Red Blood Count 5.03 M/mm3 (4.2-5.4); Red Cell Distribution Width 21.3 % (11.5-14.5); White Blood Count 4.3 K/mm3 (4.5-10.0)
[2022-08-09 13:07] LABS: Alanine Aminotransferase 40 U/L (6-35); Albumin Level 3.2 g/dL (3.5-5.1); Alkaline Phosphatase 272 U/L (38-126); Anion Gap 5 mmol/L (8-16); Aspartate Amino Transferase 39 U/L (14-36); Bilirubin,Total 0.3 mg/dL (0.2-1.3); Blood Urea Nitrogen 10 mg/dL (7-17); Calcium 8.1 mg/dL (8.4-10.2); Carbon Dioxide 26 mmol/L (22-30); Chloride 109 mmol/L (98-107); Estimated Glomerular Filt Rate > 60; Glucose 88 mg/dL (65-110); Lactic Acid Reflex 1.6 mmol/L (0.7-2.0); Potassium 3.2 mmol/L (3.4-5.0); Sodium 140 mmol/L (137-145)
[2022-08-09 13:34] LABS: Atypical Lymphocytes Present; Eosinophils Absolute Manual 0.04 K/mm3 (0.02-0.5); Eosinophils Percent Manual 1 % (0-4); Lymphocytes Absolute Manual 1.11 K/mm3 (1.1-4.5); Lymphocytes Percent Manual 26 % (18-44); Monocytes Percent Manual 7 % (3-9); Neutrophils Percent Manual 66 % (46-73); Platelet Estimate Increased (Adequate); Poikilocytosis 1+ (NORMAL); Schistocytes None Seen (NORMAL); Target Cells 1+ (NORMAL); Total Cells Counted 100
[2022-08-09] MEDS: LACTATED RINGERS 1,000 ML 500 ML IV CONT (14:01)
[2022-08-09] MEDS: POTASSIUM CHLORIDE 20 MEQ PACKET (FOR LIQUID) 40 MEQ PO (14:01)
[2022-08-09] MEDS: ONDANSETRON INJ 4 MG/2 ML VIAL IV PUSH ×2 (15:52→20:21)
[2022-08-09] MEDS: FUROSEMIDE INJ 40 MG/4 ML VIAL IV PUSH (15:52)
--- NOTE | 2022-08-09 16:55 | PC.NURSE ---
hospitalist contacted, BP elevated and pt restless, orders placed by hospitalist.
[2022-08-09] MEDS: cloNIDine HCL 0.1 MG TABLET PO (17:09)
[2022-08-09] MEDS: LORazepam INJ (*CRX) 2 MG/ML VIAL 1 MG IV PUSH (17:36)
--- NOTE | 2022-08-09 18:06 | ADMGEN ---
This patient, Salomon Young, was admitted to Medical Room 340-01. Patient/family oriented to hospital policies and general routines including ID bracelet, bed and alarms, visiting hours, pain management, procedures, bathroom and other care routines, personal items, smoking policy, room service/diet, and visiting hours. Information on how to activate the Rapid Response Team has been discussed. Patient/Family are encouraged to report perceived risks to care and to ask questions if they do not understand what they are told or what they should do.
--- NOTE | 2022-08-09 23:59 | PM.IMHP ---
H&P: HPI History of Present Illness Date/Time: 08/09/22 23:59 Chief Complaint: shortness of breath. Narrative: This is a 52-year-old female patient who does have a history of congestive heart failure. The patient stated that she is homeless. She is not compliant with medication. The patient has had an echo on 06/06/2022 which was read as the following 1. Complete two-dimensional, color flow and Doppler transthoracic echocardiogram is performed. ? 2. Left ventricular chamber dimension is normal. ? 3. Left ventricular systolic function is lower limits of normal, estimated at 50-55%. ? 4. There is no increased left ventricular wall thickness. ? 5. The left ventricular diastolic function is grade I diastolic dysfunction. ? 6. The aortic valve is not well visualized, however, leaflets appear thin and pliable with normal excursion.. ? 7. Low peak aortic valve velocity and mean gradient are not consistent with hemodynamically significant aortic stenosis.? Suspect calculated aortic valve area 1.1 cm2 is inaccurate. ? 8. There is no aortic valve regurgitation. ? 9. There is trace mitral valve regurgitation. ? 10. There is trace tricuspid valve regurgitation. ? 11. No pulmonary hypertension, estimated pulmonary arterial systolic pressure is 17 mmHg. ? 12. Normal inferior vena cava with >50% collapse upon inspiration consistent with normal right atrial pressure, 5 mmHg. ? 13. There is small pericardial effusion without tamponade physiology. the patient told the ER provider that her shortness breath is chronic but she was tired of feeling it today. The patient has a history of chronic leg wounds to her lower extremities. The patient admits to smoking crack cocaine 1 to 2 times a day. She used crack cocaine yesterday afternoon. It was also noted that there was white powder over the patient's lip and she stated that she thinks it is [place] starch daily because she likes the way it taste. chest x-ray was read as likely congestive heart failure with cardiomegaly mild pulmonary edema and small bilateral pleural effusions. Emphysema. The patient was given a supplement of potassium, LR, Lasix, Zofran and clonidine in the emergency room. She was also given the lorazepam. Her H&H is 11.0 in 36.8 which is improved from her last levels. Her potassium was felt to be 3.2 and was supplemented. Her calcium was found to be low at 8.1. The patient is being admitted to observation status on the date of service of 08/09/2022. Review of Systems Review of Systems: See HPI All systems reviewed & are unremarkable except as noted in HPI and below Constitutional: Constitutional: Reports as per HPI and Reports no additional constitutional complaints Eyes: Eyes: Reports as per HPI and Reports no additional eye complaints ENT: Reports system reviewed and no additional complaints, except as documented and Reports Normal hearing present Cardiovascular: Cardiovascular: Reports no additional cardiovascular complaints Respiratory: Respiratory: Reports no additional respiratory complaints and Reports no additional respiratory complaints Gastrointestinal: Gastrointestinal: Reports as per HPI and Reports no additional gastrointestinal complaints Musculoskeletal: Musculoskeletal: Reports no additional musculoskeletal complaints Integumentary/Breasts: Skin/Breast: Reports system reviewed and no additional complaints, except as docu and Reports as per HPI Neurologic: Reports system reviewed and no additional complaints, except as documented, Reports as per HPI and Reports Normal hearing present Psychiatric: Psychiatric: Reports no additional psychiatric complaints and Reports as per HPI Endocrine: Endocrine: Reports no additional endocrine complaints Hematologic/Lymphatic: Hematologic/Lymphatic: Reports no additional hematologic/lymphatic complaints Allergic/Immunologic: Allergic/Immunologic: Reports no additional allergic/immunologic complaints [facility] Past Medical
[2022-08-10] VITALS (7 sets, daily range): BP systolic 125–164; BP diastolic 67–98; PULSE 80–98; RESP 16–20; TEMP 36.4–36.6; O2SAT 95–100; BMI 17.8
[2022-08-10] MEDS: LORazepam INJ (*CRX) 2 MG/ML VIAL 1 MG IV PUSH ×3 (05:39→22:19)
[2022-08-10 05:40] LABS: Hematocrit 33.4 % (37.0-47.0); Hemoglobin 9.9 g/dL (12.0-15.0); Mean Corpuscular HGB Conc 29.6 g/dl (32-36); Mean Corpuscular Volume 74.1 fl (80-100); Mean Platelet Volume 9.9 fl (7.4-10.4); Platelet Count Result 403 k/mm3 (150-375); Red Blood Count 4.51 M/mm3 (4.2-5.4); White Blood Count 4.3 K/mm3 (4.5-10.0)
[2022-08-10 05:58] LABS: Alanine Aminotransferase 29 U/L (6-35); Albumin Level 2.9 g/dL (3.5-5.1); Alkaline Phosphatase 209 U/L (38-126); Anion Gap 11 mmol/L (8-16); Aspartate Amino Transferase 27 U/L (14-36); Bilirubin,Total 0.2 mg/dL (0.2-1.3); Blood Urea Nitrogen 12 mg/dL (7-17); Carbon Dioxide 30 mmol/L (22-30); Chloride 102 mmol/L (98-107); Estimated Glomerular Filt Rate > 60; Glucose 109 mg/dL (65-110); Magnesium 1.6 mg/dL (1.6-2.3); Potassium 3.6 mmol/L (3.4-5.0); Sodium 143 mmol/L (137-145)
[2022-08-10 07:20] LABS: Lymphocytes Absolute Manual 0.47 K/mm3 (1.1-4.5); Monocytes Absolute Manual 0.43 K/mm3 (0.1-0.90); Monocytes Percent Manual 10 % (3-9); Neutrophils Percent Manual 79 % (46-73); Total Cells Counted 100
[2022-08-10 07:24] LABS: Anisocytosis 1+ (NORMAL); Platelet Estimate Increased (Adequate)
[2022-08-10 07:25] LABS: Hypochromasia 2+ (NORMAL); Target Cells 1+ (NORMAL)
[2022-08-10 08:31] LABS: Schistocytes None Seen (NORMAL)
[2022-08-10] MEDS: hydrALAZINE 10 MG TABLET PO ×4 (09:28→22:19)
[2022-08-10] MEDS: PANTOPRAZOLE SODIUM IV 40 MG VIAL IV PUSH ×2 (09:28→22:19)
[2022-08-10 09:46] LABS: Iron 40 ug/dL (37-170)
[2022-08-10 09:54] LABS: Transferrin 206 mg/dL (206-381)
[2022-08-10 09:58] LABS: Percent Iron Saturation 15 % (20-50)
[2022-08-10 10:02] LABS: NT Pro B Type Natriuretic Pept 9950 pg/mL (5-100)
[2022-08-10] MEDS: METOPROLOL TARTRATE 12.5 MG TABLET PO ×2 (10:27→22:19)
[2022-08-10] MEDS: FUROSEMIDE INJ 40 MG/4 ML VIAL IV PUSH ×2 (10:29→16:59)
[2022-08-10] MEDS: POTASSIUM CHLORIDE 20 MEQ PACKET (FOR LIQUID) PO (10:29)
--- NOTE | 2022-08-10 10:30 | P.PNIM_ITS ---
Progress Note: A&P Assessment and Plan (1) CHF (congestive heart failure), NYHA class II: Code(s): I50.9 - Heart failure, unspecified Status: Acute Assessment and Plan: * Chest xray shows likely congestive heart failure with cardiomegaly, mild pulmonary edema, and small bilateral pleural effusions * Echo shows an EF of 50-55% with a grade 1 diastolic dysfunction * Shows to be an acute exacerbation of diastolic heart failure * Daily weights * Strict I&Os * lasix 40mg IV BID * BNP 9950 * Non compliant with home medications * Start metoprolol 12.5mg PO BID * Trend bp * Adjust therapy as indicated (2) Hypokalemia: Code(s): E87.6 - Hypokalemia Status: Acute Assessment and Plan: * Stable at 3.6 * Continue to trend * Daily oral supplement 20mg * Replace as indicated (3) Hypertension: Code(s): I10 - Essential (primary) hypertension Status: Acute Assessment and Plan: * Current BP is 164/98 * Started metoprolol 12.5mg BID * Furosemide also on board * Trend BP * adjust therapy as indicated (4) Venous stasis ulcers: Code(s): I83.009 - Varicose veins of unspecified lower extremity with ulcer of unspecified site; L97.909 - Non-pressure chronic ulcer of unspecified part of unspecified lower leg with unspecified severity Status: Acute Assessment and Plan: - wound care consult was greatly be appreciated. These appear to be chronic wounds. (5) Cocaine use: Code(s): F14.90 - Cocaine use, unspecified, uncomplicated Status: Acute Assessment and Plan: * Ativan PRN for anxiety * Care coordination * Cessation education given (6) Anemia: Code(s): D64.9 - Anemia, unspecified Status: Acute Assessment and Plan: * Current H/H 9.9/33.4 * Anemia labs Iron 40, TIBC 275, transferrin 206, ferritin 14.5, B 10/06/2022, folate 12.3 * MCV is low at 74 * Supplement not indicated indicated * Could be the reason that she eats corn starch * Continue to trend labs Time Spent With Patient Time with patient: Greater than 35 minutes Subjective Date/time seen: 08/10/22 1030 Interval history: 08/10/22 1030 patient was really hard to understand as she was really hesitant to talk to me anyway. She did state that she was having hard time breathing and her stomach hurt and mostly lower abdomen. She did not make any sense when I asked her abo ut a bowel movement. She does state that she has sweats and she is very nauseous. She also is complaining of being very weak. She denies any chest pain or diarrhea at this time. Upon examination interview patient was rocking back and forth and she was eating Jell-O. I did talk to the patient about quitting the drugs which she stated she was willing to do. I informed her of the risk. 08/09/22 2666 This is a 52-year-old female patient who does have a history of congestive heart failure.? The patient stated that she is homeless.? She is not compliant with medication.? The patient has had an echo on 06/06/2022 which was read as the following EF of 50-55% with a grade 1 diastolic dysfuntion, ?the patient told the ER provider that her shortness breath is chronic but she was tired of feeling it today.? The patient has a history of chronic leg wounds to her lower extremities.? The patient admits to smoking crack cocain
--- NOTE | 2022-08-10 10:30 | PM.IMPN ---
Progress Note: A&P Assessment and Plan (1) CHF (congestive heart failure), NYHA class II: Code(s): I50.9 - Heart failure, unspecified Status: Acute Assessment and Plan: Chest xray shows likely congestive heart failure with cardiomegaly, mild pulmonary edema, and small bilateral pleural effusions Echo shows an EF of 50-55% with a grade 1 diastolic dysfunction Shows to be an acute exacerbation of diastolic heart failure Daily weights Strict I&Os lasix 40mg IV BID BNP 9950 Non compliant with home medications Start metoprolol 12.5mg PO BID Trend bp Adjust therapy as indicated (2) Hypokalemia: Code(s): E87.6 - Hypokalemia Status: Acute Assessment and Plan: Stable at 3.6 Continue to trend Daily oral supplement 20mg Replace as indicated (3) Hypertension: Code(s): I10 - Essential (primary) hypertension Status: Acute Assessment and Plan: Current BP is 164/98 Started metoprolol 12.5mg BID Furosemide also on board Trend BP adjust therapy as indicated (4) Venous stasis ulcers: Code(s): I83.009 - Varicose veins of unspecified lower extremity with ulcer of unspecified site; L97.909 - Non-pressure chronic ulcer of unspecified part of unspecified lower leg with unspecified severity Status: Acute Assessment and Plan: - wound care consult was greatly be appreciated. These appear to be chronic wounds. (5) Cocaine use: Code(s): F14.90 - Cocaine use, unspecified, uncomplicated Status: Acute Assessment and Plan: Ativan PRN for anxiety Care coordination Cessation education given (6) Anemia: Code(s): D64.9 - Anemia, unspecified Status: Acute Assessment and Plan: Current H/H 9.9/33.4 Anemia labs Iron 40, TIBC 275, transferrin 206, ferritin 14.5, B 10/06/2022, folate 12.3 MCV is low at 74 Supplement not indicated indicated Could be the reason that she eats corn starch Continue to trend labs Time Spent With Patient Time with patient: Greater than 35 minutes Subjective Date/time seen: 08/10/22 1030 Interval history: 08/10/221029 patient was really hard to understand as she was really hesitant to talk to me anyway. She did state that she was having hard time breathing and her stomach hurt and mostly lower abdomen. She did not make any sense when I asked her about a bowel movement. She does state that she has sweats and she is very nauseous. She also is complaining of being very weak. She denies any chest pain or diarrhea at this time. Upon examination interview patient was rocking back and forth and she was eating Jell-O. I did talk to the patient about quitting the drugs which she stated she was willing to do. I informed her of the risk. 08/09/22 3694 This is a 52-year-old female patient who does have a history of congestive heart failure.? The patient stated that she is homeless.? She is not compliant with medication.? The patient has had an echo on 06/06/2022 which was read as the following EF of 50-55% with a grade 1 diastolic dysfuntion, ?the patient told the ER provider that her shortness breath is chronic but she was tired of feeling it today.? The patient has a history of chronic leg wounds to her lower extremities.? The patient admits to smoking crack cocaine 1 to 2 times a day.? She used crack cocaine yesterday afternoon.? It was also noted that there was white powder over the patient's? lip and she stated that she thinks it? is? [place] starch daily because she likes the way it taste. ?chest x-ray was read as likely congestive heart failure with cardiomegaly mild pulmonary edema and small bilateral pleural effusions.? Emphysema.? The patient was given a supplement of potassium, LR, Lasix, Zofran and clonidine in the emergency room.? She was also given the lorazepam.? Her H&H is 11.0 in 36.8 which is im
[2022-08-10 11:10] LABS: Folic Acid 12.3 ng/mL (2.76->20)
[2022-08-11 06:00] VITALS: BP 114/69; PULSE 64; RESP 20; TEMP 36.6; O2SAT 92
--- NOTE | 2022-08-11 09:26 | PCDIET ---
At 0915 bed alarm sounded, upon entering room patient was sitting on the floor with her breakfast plate in hand. No injuries were noted and she was assisted back to bed. [facility] was notified.
[2022-08-11 09:53] VITALS: PULSE 80
[2022-08-11] MEDS: METOPROLOL TARTRATE 12.5 MG TABLET PO ×2 (09:53→22:36)
[2022-08-11] MEDS: ENOXAPARIN 40 MG/0.4 ML SYRINGE SUB-Q (09:54)
[2022-08-11] MEDS: hydrALAZINE 10 MG TABLET PO ×2 (09:54→22:36)
[2022-08-11] MEDS: POTASSIUM CHLORIDE 20 MEQ PACKET (FOR LIQUID) PO (09:54)
[2022-08-11] MEDS: FUROSEMIDE INJ 40 MG/4 ML VIAL IV PUSH (09:54)
[2022-08-11] MEDS: PANTOPRAZOLE SODIUM IV 40 MG VIAL IV PUSH ×2 (09:54→22:36)
[2022-08-11] MEDS: SILVERGEL (ELTA) 45 ML 1 APPLIC TOPICAL (09:55)
[2022-08-11] MEDS: ONDANSETRON INJ 4 MG/2 ML VIAL IV PUSH (10:16)
[2022-08-11] MEDS: LORazepam INJ (*CRX) 2 MG/ML VIAL 1 MG IV PUSH ×2 (10:16→18:21)
--- NOTE | 2022-08-11 11:00 | PM.IMPN ---
Progress Note: A&P Assessment and Plan (1) CHF (congestive heart failure), NYHA class II: Code(s): I50.9 - Heart failure, unspecified Status: Acute Assessment and Plan: Chest xray shows likely congestive heart failure with cardiomegaly, mild pulmonary edema, and small bilateral pleural effusions Echo shows an EF of 50-55% with a grade 1 diastolic dysfunction Shows to be an acute exacerbation of diastolic heart failure Daily weights Strict I&Os lasix 40mg IV BID BNP 9950 Non compliant with home medications Start metoprolol 12.5mg PO BID Trend bp Adjust therapy as indicated (2) Hypokalemia: Code(s): E87.6 - Hypokalemia Status: Acute Assessment and Plan: Patient refused labs will try again tomorrow Continue to trend Daily oral supplement 20mg Replace as indicated (3) Hypertension: Code(s): I10 - Essential (primary) hypertension Status: Acute Assessment and Plan: Current BP is 131/78 Started metoprolol 12.5mg BID Furosemide 40mg IV Trend BP adjust therapy as indicated (4) Venous stasis ulcers: Code(s): I83.009 - Varicose veins of unspecified lower extremity with ulcer of unspecified site; L97.909 - Non-pressure chronic ulcer of unspecified part of unspecified lower leg with unspecified severity Status: Acute Assessment and Plan: - wound care consult was greatly be appreciated. These appear to be chronic wounds. (5) Cocaine use: Code(s): F14.90 - Cocaine use, unspecified, uncomplicated Status: Acute Assessment and Plan: Ativan PRN for anxiety Care coordination Cessation education given (6) Anemia: Code(s): D64.9 - Anemia, unspecified Status: Acute Assessment and Plan: Current H/H 9.9/33.4 Anemia labs Iron 40, TIBC 275, transferrin 206, ferritin 14.5, B 10/06/2022, folate 12.3 MCV is low at 74 Supplement not indicated indicated Could be the reason that she eats corn starch Continue to trend labs Time Spent With Patient Time with patient: Greater than 35 minutes Subjective Date/time seen: 08/11/22 11:00 Interval history: 08/11/22 1100 Patient would only tell me that she is having back pain and she wants me to massage her back. She did state also that she was still short of breath. According the nurse the patient was found on the floor however unaware if she really fell. The nurse also indicated the patient has been standing up and being on the floor. Patient still has the rocking motions. A complete review of systems was unable to be obtained due to patient's mental status. 08/10/22 1030 patient was really hard to understand as she was really hesitant to talk to me anyway. She did state that she was having hard time breathing and her stomach hurt and mostly lower abdomen. She did not make any sense when I asked her about a bowel movement. She does state that she has sweats and she is very nauseous. She also is complaining of being very weak. She denies any chest pain or diarrhea at this time. Upon examination interview patient was rocking back and forth and she was eating Jell-O. I did talk to the patient about quitting the drugs which she stated she was willing to do. I informed her of the risk. 08/09/22 3184 This is a 52-year-old female patient who does have a history of congestive heart failure.? The patient stated that she is homeless.? She is not compliant with medication.? The patient has had an echo on 06/06/2022 which was read as the following EF of 50-55% with a grade 1 diastolic dysfuntion, ?the patient told the ER provider that her shortness breath is chronic but she was tired of feeling it today.? The patient has a history of chronic leg wounds to her lower extremities.? The patient admits to smoking crack cocaine 1 to 2 times a day.? She used crack cocaine yesterday a
--- NOTE | 2022-08-11 11:00 | P.PNIM_ITS ---
Progress Note: A&P Assessment and Plan (1) CHF (congestive heart failure), NYHA class II: Code(s): I50.9 - Heart failure, unspecified Status: Acute Assessment and Plan: * Chest xray shows likely congestive heart failure with cardiomegaly, mild pulmonary edema, and small bilateral pleural effusions * Echo shows an EF of 50-55% with a grade 1 diastolic dysfunction * Shows to be an acute exacerbation of diastolic heart failure * Daily weights * Strict I&Os * lasix 40mg IV BID * BNP 9950 * Non compliant with home medications * Start metoprolol 12.5mg PO BID * Trend bp * Adjust therapy as indicated (2) Hypokalemia: Code(s): E87.6 - Hypokalemia Status: Acute Assessment and Plan: * Patient refused labs will try again tomorrow * Continue to trend * Daily oral supplement 20mg * Replace as indicated (3) Hypertension: Code(s): I10 - Essential (primary) hypertension Status: Acute Assessment and Plan: * Current BP is 131/78 * Started metoprolol 12.5mg BID * Furosemide 40mg IV * Trend BP * adjust therapy as indicated (4) Venous stasis ulcers: Code(s): I83.009 - Varicose veins of unspecified lower extremity with ulcer of unspecified site; L97.909 - Non-pressure chronic ulcer of unspecified part of unspecified lower leg with unspecified severity Status: Acute Assessment and Plan: - wound care consult was greatly be appreciated. These appear to be chronic wounds. (5) Cocaine use: Code(s): F14.90 - Cocaine use, unspecified, uncomplicated Status: Acute Assessment and Plan: * Ativan PRN for anxiety * Care coordination * Cessation education given (6) Anemia: Code(s): D64.9 - Anemia, unspecified Status: Acute Assessment and Plan: * Current H/H 9.9/33.4 * Anemia labs Iron 40, TIBC 275, transferrin 206, ferritin 14.5, B 10/06/2022, folate 12.3 * MCV is low at 74 * Supplement not indicated indicated * Could be the reason that she eats corn starch * Continue to trend labs Time Spent With Patient Time with patient: Greater than 35 minutes Subjective Date/time seen: 08/11/22 11:00 Interval history: 08/11/22 1100 Patient would only tell me that she is having back pain and she wants me to massage her back. She did state also that she was still short of breath. According the nurse the patient was found on the floor however unaware if she really fell. The nurse also indicated the patient has been standing up and being on the floor. Patient still has the rocking motions. A complete review of systems was unable to be obtained due to patient's mental status. 08/10/22 1030 patient was really hard to understand as she was really hesitant to talk to me anyway. She did state that she was having hard time breathing and her stomach hurt and mostly lower abdomen. She did not make any sense when I asked her about a bowel movement. She does state that she has sweats and she is very naus eous. She also is complaining of being very weak. She denies any chest pain or diarrhea at this time. Upon examination interview patient was rocking back and forth and she was eating Jell-O. I did talk to the patient about quitting the drugs which she stated she was willing to do. I informed her of the risk. 08/09/22 2088 This is a 52-yea
[2022-08-11 13:07] VITALS: BP 131/78; PULSE 85; RESP 16; TEMP 36.4; O2SAT 93
--- NOTE | 2022-08-11 13:51 | PC.NURSE ---
Patient refused 1200 medication stating no when ask multiple times. Patient was in bed on hands and knees rocking back and forth and would answer no further questions.
[2022-08-11 19:47] VITALS: BP 126/68; PULSE 110; RESP 22; TEMP 36.5; O2SAT 100
[2022-08-11 20:00] VITALS: O2SAT 100
[2022-08-11 22:36] VITALS: PULSE 96
[2022-08-12 04:17] VITALS: BP 127/66; PULSE 86; RESP 20; TEMP 36.6; O2SAT 95
[2022-08-12 06:46] LABS: Basophils Percent Auto 0.7 % (0.2-1.2); Eosinophils Absolute Auto 0.2 K/mm3 (0-0.3); Eosinophils Percent Auto 2.9 % (0-4.4); Hematocrit 32.3 % (37.0-47.0); Hemoglobin 9.5 g/dL (12.0-15.0); Immature Granulocyte Absolute 0.02 K/mm3 (0.00-0.031); Immature Granulocyte Percent A 0.4 % (0-0.5); Lymphocytes Percent Auto 23.6 % (18.3-44.2); Mean Corpuscular HGB Conc 29.4 g/dl (32-36); Mean Corpuscular Hemoglobin 21.3 pg (26-34); Mean Corpuscular Volume 72.6 fl (80-100); Mean Platelet Volume 9.1 fl (7.4-10.4); Monocytes Absolute Auto 0.9 K/mm3 (0.1-0.6); Monocytes Percent Auto 15.5 % (2.6-8.5); Neutrophils Absolute Auto 3.1 K/mm3 (1.3-6.7); Neutrophils Percent Auto 56.9 % (45.5-73.1); Platelet Count Result 274 k/mm3 (150-375); Red Blood Count 4.45 M/mm3 (4.2-5.4); Red Cell Distribution Width 20.1 % (11.5-14.5); White Blood Count 5.5 K/mm3 (4.5-10.0)
[2022-08-12 06:59] LABS: Alanine Aminotransferase 18 U/L (6-35); Albumin Level 2.7 g/dL (3.5-5.1); Alkaline Phosphatase 132 U/L (38-126); Anion Gap 7 mmol/L (8-16); Aspartate Amino Transferase 20 U/L (14-36); Bilirubin,Total < 0.1 mg/dL (0.2-1.3); Blood Urea Nitrogen 14 mg/dL (7-17); Calcium 7.7 mg/dL (8.4-10.2); Carbon Dioxide 32 mmol/L (22-30); Chloride 98 mmol/L (98-107); Estimated Glomerular Filt Rate > 60; Glucose 91 mg/dL (65-110); Magnesium 1.7 mg/dL (1.6-2.3); Potassium 3.7 mmol/L (3.4-5.0); Sodium 137 mmol/L (137-145)
[2022-08-12 07:16] LABS: Hypochromasia 1+ (NORMAL); Platelet Estimate Adequate (Adequate); Target Cells 1+ (NORMAL)
[2022-08-12 07:17] LABS: Microcytosis 1+ (NORMAL); Ovalocytes 1+ (NORMAL); Schistocytes None Seen (NORMAL)
[2022-08-12 08:00] VITALS: PULSE 88; RESP 20; O2SAT 95
[2022-08-12] MEDS: POTASSIUM CHLORIDE 20 MEQ PACKET (FOR LIQUID) PO (08:18)
[2022-08-12] MEDS: hydrALAZINE 10 MG TABLET PO ×4 (08:18→20:38)
[2022-08-12 08:19] VITALS: PULSE 88
[2022-08-12] MEDS: FUROSEMIDE INJ 40 MG/4 ML VIAL IV PUSH ×2 (08:19→17:30)
[2022-08-12] MEDS: ENOXAPARIN 40 MG/0.4 ML SYRINGE SUB-Q (08:19)
[2022-08-12] MEDS: METOPROLOL TARTRATE 12.5 MG TABLET PO ×2 (08:19→20:38)
[2022-08-12] MEDS: PANTOPRAZOLE SODIUM IV 40 MG VIAL IV PUSH (08:19)
[2022-08-12] MEDS: SILVERGEL (ELTA) 45 ML 1 APPLIC TOPICAL (08:20)
--- NOTE | 2022-08-12 11:30 | P.PNIM_ITS ---
Progress Note: A&P Assessment and Plan (1) CHF (congestive heart failure), NYHA class II: Code(s): I50.9 - Heart failure, unspecified Status: Acute Assessment and Plan: * Chest xray shows likely congestive heart failure with cardiomegaly, mild pulmonary edema, and small bilateral pleural effusions * Echo shows an EF of 50-55% with a grade 1 diastolic dysfunction * Shows to be an acute exacerbation of diastolic heart failure * Daily weights * Strict I&Os * lasix 40mg IV BID * BNP 9950 * Non compliant with home medications * Start metoprolol 12.5mg PO BID * Trend bp * Adjust therapy as indicated (2) Hypokalemia: Code(s): E87.6 - Hypokalemia Status: Acute Assessment and Plan: * Patient refused labs will try again tomorrow * Continue to trend * Daily oral supplement 20mg * Replace as indicated (3) Hypertension: Code(s): I10 - Essential (primary) hypertension Status: Acute Assessment and Plan: * Current BP is 131/78 * Started metoprolol 12.5mg BID * Furosemide 40mg IV * Trend BP * adjust therapy as indicated (4) Venous stasis ulcers: Code(s): I83.009 - Varicose veins of unspecified lower extremity with ulcer of unspecified site; L97.909 - Non-pressure chronic ulcer of unspecified part of unspecified lower leg with unspecified severity Status: Acute Assessment and Plan: - wound care consult was greatly be appreciated. These appear to be chronic wounds. (5) Cocaine use: Code(s): F14.90 - Cocaine use, unspecified, uncomplicated Status: Acute Assessment and Plan: * Ativan PRN for anxiety * Care coordination * Cessation education given (6) Anemia: Code(s): D64.9 - Anemia, unspecified Status: Acute Assessment and Plan: * Current H/H 9.9/33.4 * Anemia labs Iron 40, TIBC 275, transferrin 206, ferritin 14.5, B 10/06/2022, folate 12.3 * MCV is low at 74 * Supplement not indicated indicated * Could be the reason that she eats corn starch * Continue to trend labs Subjective Date/time seen: 08/12/22 11:30 breathing better Exam Const: General: cooperative, no acute distress, awake, Physically active, average body habitus, well nourished, cachectic and underweight Nutritional Appearance: average body habitus, well nourished, cachectic and underweight Orientation/consciousness: oriented to person and oriented to place HENMT: Head: normal to inspection, No palpable skull fracture present, normocephalic and atraumatic Ears: hearing grossly normal bilaterally and external ears normal Face/Nose/Sinus: Normal external nose present and Normal nares present Other: The patient is edentulous Eyes: General: appearance normal, both eyes and all related structures Alignment and Position: alignment normal Periorbital: periorbital findings normal Eyelids: eyelids normal Sclera: sclerae normal Pupils: Equal, round and reactive pupils present EOM: EOMs intact bilaterally Neck: Neck: normal visual inspection, full ROM, no lymphadenopathy, trachea midline and supple Chest: Chest palpation & inspection: normal inspection of the chest Resp: Effort & Inspection: normal respiratory effort Auscultation: clear to auscultation bilaterally and diminished lung sounds
--- NOTE | 2022-08-12 11:30 | PM.IMPN ---
Progress Note: A&P Assessment and Plan (1) CHF (congestive heart failure), NYHA class II: Code(s): I50.9 - Heart failure, unspecified Status: Acute Assessment and Plan: Chest xray shows likely congestive heart failure with cardiomegaly, mild pulmonary edema, and small bilateral pleural effusions Echo shows an EF of 50-55% with a grade 1 diastolic dysfunction Shows to be an acute exacerbation of diastolic heart failure Daily weights Strict I&Os lasix 40mg IV BID BNP 9950 Non compliant with home medications Start metoprolol 12.5mg PO BID Trend bp Adjust therapy as indicated (2) Hypokalemia: Code(s): E87.6 - Hypokalemia Status: Acute Assessment and Plan: Patient refused labs will try again tomorrow Continue to trend Daily oral supplement 20mg Replace as indicated (3) Hypertension: Code(s): I10 - Essential (primary) hypertension Status: Acute Assessment and Plan: Current BP is 131/78 Started metoprolol 12.5mg BID Furosemide 40mg IV Trend BP adjust therapy as indicated (4) Venous stasis ulcers: Code(s): I83.009 - Varicose veins of unspecified lower extremity with ulcer of unspecified site; L97.909 - Non-pressure chronic ulcer of unspecified part of unspecified lower leg with unspecified severity Status: Acute Assessment and Plan: - wound care consult was greatly be appreciated. These appear to be chronic wounds. (5) Cocaine use: Code(s): F14.90 - Cocaine use, unspecified, uncomplicated Status: Acute Assessment and Plan: Ativan PRN for anxiety Care coordination Cessation education given (6) Anemia: Code(s): D64.9 - Anemia, unspecified Status: Acute Assessment and Plan: Current H/H 9.9/33.4 Anemia labs Iron 40, TIBC 275, transferrin 206, ferritin 14.5, B 10/06/2022, folate 12.3 MCV is low at 74 Supplement not indicated indicated Could be the reason that she eats corn starch Continue to trend labs Subjective Date/time seen: 08/12/22 11:30 breathing better Exam Const: General: cooperative, no acute distress, awake, Physically active, average body habitus, well nourished, cachectic and underweight Nutritional Appearance: average body habitus, well nourished, cachectic and underweight Orientation/consciousness: oriented to person and oriented to place HENMT: Head: normal to inspection, No palpable skull fracture present, normocephalic and atraumatic Ears: hearing grossly normal bilaterally and external ears normal Face/Nose/Sinus: Normal external nose present and Normal nares present Other: The patient is edentulous Eyes: General: appearance normal, both eyes and all related structures Alignment and Position: alignment normal Periorbital: periorbital findings normal Eyelids: eyelids normal Sclera: sclerae normal Pupils: Equal, round and reactive pupils present EOM: EOMs intact bilaterally Neck: Neck: normal visual inspection, full ROM, no lymphadenopathy, trachea midline and supple Chest: Chest palpation & inspection: normal inspection of the chest Resp: Effort & Inspection: normal respiratory effort Auscultation: clear to auscultation bilaterally and diminished lung sounds bilateral Cardio: Palpation: normal PMI Rate: regular rate Rhythm: regular rhythm Heart sounds: S1 normal heart sound present and S2 normal heart sound present Peripheral pulses: Peripheral pulses 2+ throughout GI: Inspection: normal to inspection Auscultation: normal bowel sounds Rectal Exam: deferred Back/Spine/Pelvis: Cervical Spine: cervical ROM normal Skin: General skin exam: normal color and wounds noted ( the patient has a large area to right lower extremity 7 x 7 aproximately) Trauma: no lacerations or abrasions Wounds: wounds noted ( the patient has a large area to right lower extremity 7
[2022-08-12 17:00] VITALS: BP 124/51; PULSE 53; RESP 14; TEMP 36.4; O2SAT 96
[2022-08-12 19:47] VITALS: BP 135/67; PULSE 102; RESP 22; TEMP 37; O2SAT 94
[2022-08-12 20:38] VITALS: PULSE 99
[2022-08-12] MEDS: PANTOPRAZOLE 40 MG TABLET PO (20:38)
[2022-08-13 06:03] VITALS: BP 134/78; PULSE 92; RESP 16; TEMP 36.4; O2SAT 96
[2022-08-13] MEDS: POTASSIUM CHLORIDE 20 MEQ PACKET (FOR LIQUID) PO (07:56)
[2022-08-13 08:00] VITALS: PULSE 93
[2022-08-13] MEDS: hydrALAZINE 10 MG TABLET PO ×2 (08:00→11:55)
[2022-08-13] MEDS: METOPROLOL TARTRATE 12.5 MG TABLET PO (08:00)
[2022-08-13] MEDS: FUROSEMIDE INJ 40 MG/4 ML VIAL IV PUSH (08:00)
[2022-08-13] MEDS: ENOXAPARIN 40 MG/0.4 ML SYRINGE SUB-Q (08:00)
[2022-08-13] MEDS: PANTOPRAZOLE 40 MG TABLET PO (08:02)
--- NOTE | 2022-08-13 11:08 | P.DS_ITS ---
DS: Admitting Diagnosis Discharge Date August 13, 2022 Admitting Diagnosis CHF DS: Discharge Diagnosis Discharge Diagnosis (1) CHF (congestive heart failure), NYHA class II: Code(s): I50.9 - Heart failure, unspecified Status: Acute Assessment and Plan: * Chest xray shows likely congestive heart failure with cardiomegaly, mild pulmonary edema, and small bilateral pleural effusions * Echo shows an EF of 50-55% with a grade 1 diastolic dysfunction * Shows to be an acute exacerbation of diastolic heart failure * Daily weights * Strict I&Os * lasix 40mg IV BID * BNP 9950 * Non compliant with home medications * Start metoprolol 12.5mg PO BID * Trend bp * Adjust therapy as indicated (2) Hypokalemia: Code(s): E87.6 - Hypokalemia Status: Acute Assessment and Plan: * Patient refused labs will try again tomorrow * Continue to trend * Daily oral supplement 20mg * Replace as indicated (3) Hypertension: Code(s): I10 - Essential (primary) hypertension Status: Acute Assessment and Plan: * Current BP is 131/78 * Started metoprolol 12.5mg BID * Furosemide 40mg IV * Trend BP * adjust therapy as indicated (4) Venous stasis ulcers: Code(s): I83.009 - Varicose veins of unspecified lower extremity with ulcer of unspecified site; L97.909 - Non-pressure chronic ulcer of unspecified part of unspecified lower leg with unspecified severity Status: Acute Assessment and Plan: - wound care consult was greatly be appreciated. These appear to be chronic wounds. (5) Cocaine use: Code(s): F14.90 - Cocaine use, unspecified, uncomplicated Status: Acute Assessment and Plan: * Ativan PRN for anxiety * Care coordination * Cessation education given (6) Anemia: Code(s): D64.9 - Anemia, unspecified Status: Acute Assessment and Plan: * Current H/H 9.9/33.4 * Anemia labs Iron 40, TIBC 275, transferrin 206, ferritin 14.5, B 10/06/2022, folate 12.3 * MCV is low at 74 * Supplement not indicated indicated * Could be the reason that she eats corn starch * Continue to trend labs DS: Summary Hospital Course Hospital Course: patient is a 52-year-old female history of CHF and noncompliance. She came shortness of breath and found to be in CHF exacerbation. She was not taking her medications. Her cardiac medications were resumed she was given diuretics in the hospital and did exceptionally well. She is sitting up in bed not requiring oxygen currently. Patient can be discharged home. prescriptions for medications were given. Time Spent with Patient Time attestation: Total time spent providing and/or coordinating discharge services: Exam Const: General: cooperative, no acute distress, awake, Physically active, average body habitus, well nourished, cachectic and underweight Nutritional Appearance: average body habitus, well nourished, cachectic and underweight Orientation/consciousness: oriented to person and oriented to place HENMT: Head: normal to inspection, No palpable skull fracture present, normocephalic and atraumatic Ears: hearing grossly normal bilaterally and external ears normal Face/Nose/Sinus: Normal external nose present and Normal nares present Other: The patient is edentulous
--- NOTE | 2022-08-13 11:08 | PM.DS ---
DS: Admitting Diagnosis Discharge Date August 13, 2022 Admitting Diagnosis CHF DS: Discharge Diagnosis Discharge Diagnosis (1) CHF (congestive heart failure), NYHA class II: Code(s): I50.9 - Heart failure, unspecified Status: Acute Assessment and Plan: Chest xray shows likely congestive heart failure with cardiomegaly, mild pulmonary edema, and small bilateral pleural effusions Echo shows an EF of 50-55% with a grade 1 diastolic dysfunction Shows to be an acute exacerbation of diastolic heart failure Daily weights Strict I&Os lasix 40mg IV BID BNP 9950 Non compliant with home medications Start metoprolol 12.5mg PO BID Trend bp Adjust therapy as indicated (2) Hypokalemia: Code(s): E87.6 - Hypokalemia Status: Acute Assessment and Plan: Patient refused labs will try again tomorrow Continue to trend Daily oral supplement 20mg Replace as indicated (3) Hypertension: Code(s): I10 - Essential (primary) hypertension Status: Acute Assessment and Plan: Current BP is 131/78 Started metoprolol 12.5mg BID Furosemide 40mg IV Trend BP adjust therapy as indicated (4) Venous stasis ulcers: Code(s): I83.009 - Varicose veins of unspecified lower extremity with ulcer of unspecified site; L97.909 - Non-pressure chronic ulcer of unspecified part of unspecified lower leg with unspecified severity Status: Acute Assessment and Plan: - wound care consult was greatly be appreciated. These appear to be chronic wounds. (5) Cocaine use: Code(s): F14.90 - Cocaine use, unspecified, uncomplicated Status: Acute Assessment and Plan: Ativan PRN for anxiety Care coordination Cessation education given (6) Anemia: Code(s): D64.9 - Anemia, unspecified Status: Acute Assessment and Plan: Current H/H 9.9/33.4 Anemia labs Iron 40, TIBC 275, transferrin 206, ferritin 14.5, B 10/06/2022, folate 12.3 MCV is low at 74 Supplement not indicated indicated Could be the reason that she eats corn starch Continue to trend labs DS: Summary Hospital Course Hospital Course: patient is a 52-year-old female history of CHF and noncompliance. She came shortness of breath and found to be in CHF exacerbation. She was not taking her medications. Her cardiac medications were resumed she was given diuretics in the hospital and did exceptionally well. She is sitting up in bed not requiring oxygen currently. Patient can be discharged home. prescriptions for medications were given. Time Spent with Patient Time attestation: Total time spent providing and/or coordinating discharge services: Exam Const: General: cooperative, no acute distress, awake, Physically active, average body habitus, well nourished, cachectic and underweight Nutritional Appearance: average body habitus, well nourished, cachectic and underweight Orientation/consciousness: oriented to person and oriented to place HENMT: Head: normal to inspection, No palpable skull fracture present, normocephalic and atraumatic Ears: hearing grossly normal bilaterally and external ears normal Face/Nose/Sinus: Normal external nose present and Normal nares present Other: The patient is edentulous Eyes: General: appearance normal, both eyes and all related structures Alignment and Position: alignment normal Periorbital: periorbital findings normal Eyelids: eyelids normal Sclera: sclerae normal Pupils: Equal, round and reactive pupils present EOM: EOMs intact bilaterally Neck: Neck: normal visual inspection, full ROM, no lymphadenopathy, trachea midline and supple Chest: Chest palpation & inspection: normal inspection of the chest Resp: Effort & Inspection: normal respiratory effort Auscultation: clear to auscultation bilaterally and diminished lung sounds bilateral Cardio:
== END 2022-08-13 14:20 | disposition home or self-care (01) ==
LOC: ANHED 16:10 → ANH3MED 08-13 11:08
PROVIDERS: Nurse Practitioner; Admitting Provider Hospitalist; Emergency Provider Emergency Medicine; Visit Provider Chiropractor
DX: I11.0 Hypertensive heart disease with heart failure (principal); I50.9 Heart failure, unspecified; E87.6 Hypokalemia; I83.009 Varicose veins of unspecified lower extremity with ulcer of unspecified site; L97.909 Non-pressure chronic ulcer of unspecified part of unspecified lower leg with unspecified severity; F14.90 Cocaine use, unspecified, uncomplicated; D64.9 Anemia, unspecified; R63.6 Underweight; R64 Cachexia; Z68.1 Body mass index [BMI] 19.9 or less, adult; R94.31 Abnormal electrocardiogram [ECG] [EKG]; J43.9 Emphysema, unspecified; Z91.14 Patient's other noncompliance with medication regimen; Z59.00 Homelessness unspecified; F17.200 Nicotine dependence, unspecified, uncomplicated
CPT/HCPCS: 36415; 71045; 80053; 82607; 82728; 82746; 83540; 83550; 83605; 83735; 83880; 84443; 84466; 85025; 93005; 96372; 96374; 96375; 96376; 99285; A9270; C9113; G0378; J1650; J1940; J2060; J2405; J7120